=== PATIENT | female | born 1990 | race Two or more races ===

== ENCOUNTER 2024-09-26 19:16 | Emergency (ER) | payer OTHER, MEDICAID ==
[~2024-09-26] VITALS: Ht 152.4 cm; Wt 89.0 kg
[2024-09-26 19:28] VITALS: TEMP 37; O2SAT 99
[2024-09-26] MEDS ORDERED: LIDO-53 TP (21:34)
[2024-09-26] MEDS ORDERED: IBUP-2029 MT (21:34)
[2024-09-26] MEDS ORDERED: CYCL10TA21 MT (21:34)
[2024-09-26 22:24] VITALS: O2SAT 99
[2024-09-26 22:35] VITALS: PULSE 101
[2024-09-26] MEDS: KETOROLAC 15MG/ML VIAL IM ONE (22:35)
[2024-09-26 22:36] VITALS: BP 125/87; RESP 20
[2024-09-26] MEDS: LIDOCAINE 5% PATCH TOP SCH (22:36)
== END 2024-09-26 22:43 | disposition home or self-care (01) ==
LOC: ER 19:16
DX: S16.1XXA Strain of muscle, fascia and tendon at neck level, initial encounter (principal); M25.561 Pain in right knee; M25.562 Pain in left knee; M54.2 Cervicalgia; G44.209 Tension-type headache, unspecified, not intractable; J45.909 Unspecified asthma, uncomplicated; V89.2XXA Person injured in unspecified motor-vehicle accident, traffic, initial encounter; Y93.89 Activity, other specified; Y92.410 Unspecified street and highway as the place of occurrence of the external cause; Y99.8 Other external cause status
CPT/HCPCS: 81025; 73090; 73562; 96372; 99284; J1885; Z7610; A6449